=== PATIENT | female | born 1985 | race Caucasian/White ===

== ENCOUNTER 2018-09-20 10:51 | Emergency (ER) | payer SELFPAY ==
[~2018-09-20] VITALS: Ht 142.2 cm; Wt 70.8 kg
[2018-09-20 11:03] VITALS: BP 78/43
--- NOTE | 2018-09-20 11:09 | NUR ---
PT TO ER BED 7
--- NOTE | 2018-09-20 11:10 | NUR ---
C/O RECENT DIAGNOSIS OF BRONCHITIS. PT STILL EXPERIENCING SYMPTOMS AFTER TREATMENT WITH ANTIBIOTICS, FEVER, NAUSEA, VOMITING X 3 TODAY, DIARRHEA. TEMP 98 AT TIME OF TRIAGE. REPORTS SHE IS 10WKS, LMP 07/08/18, SKIN IS PINK/WARM/DRY; AAOX4 WITH EVEN AND STEADY GAIT; LUNGS CLEAR BL; HR EVEN AND REGULAR; PT DENIES ANY FEVER, CP, SOB, OR COUGH AT THIS TIME; PATIENT STATES PAIN OF 0/10 AT THIS TIME; VSS; PATIENT POSITIONED FOR COMFORT; HOB ELEVATED; BEDRAILS UP X2; BED DOWN. ER MD MADE AWARE OF PT STATUS.
--- NOTE | 2018-09-20 11:40 | NUR ---
Patient being evaluated by physician at bedside.
[2018-09-20 12:48] VITALS: BP 123/81
--- NOTE | 2018-09-20 12:53 | NUR ---
Patient discharged with v/s stable. Written and verbal after care instructions given and explained. Patient alert, oriented and verbalized understanding of instructions. Ambulatory with steady gait. All questions addressed prior to discharge. ID band removed. Patient advised to follow up with PMD. Rx of diclegis given. Patient educated on indication of medication including possible reaction and side effects. Opportunity to ask questions provided and answered.
== END 2018-09-20 12:53 | disposition home or self-care (01) ==
LOC: MED 10:51
DX: O98.511 Other viral diseases complicating pregnancy, first trimester (principal); B34.9 Viral infection, unspecified; O21.0 Mild hyperemesis gravidarum; Z3A.10 10 weeks gestation of pregnancy
CPT/HCPCS: 81002; 81025; 87804; 99283

== ENCOUNTER 2018-11-13 14:16 | Emergency (ER) | payer MEDICAID ==
[~2018-11-13] VITALS: Ht 142.2 cm; Wt 69.9 kg
--- NOTE | 2018-11-13 14:22 | NUR ---
PT AMBULATED TO ER BED 08
--- NOTE | 2018-11-13 14:22 | NUR ---
PATIENT PRESENTS TO ED WITH C/O BACK PAIN AND ABD PAIN SINCE LAST NIGHT. G3,P2, PT IS 18 WEEKS . PT DENIES VAG BLEEDING OR DISCHARGE AT THIS TIME. PT DENIES PAINFUL URINATION. PAIN 02/23 PT SKIN IS PINK/WARM/DRY; AAOX4 WITH EVEN AND STEADY GAIT; LUNGS CLEAR BL; HR EVEN AND REGULAR; PATIENT POSITIONED FOR COMFORT; HOB ELEVATED; BEDRAILS UP X2; BED DOWN. PENDING ER MD EVALUATION.
[2018-11-13 14:25] VITALS: BP 121/75
--- NOTE | 2018-11-13 15:05 | NUR ---
KEDAR KIRBY AT BEDSIDE TO EVALUATE PT
[2018-11-13 15:20] VITALS: BP 120/72
[2018-11-13 15:23] LABS: APPEARANCE,URINE SL CLOUDY (CLEAR); BILIRUBIN,URINE 2+ (NEGATIVE); BLOOD, URINE NEGATIVE (NEGATIVE); COLOR,URINE YELLOW (YELLOW); LEUKOCYTE ESTERASE ,URINE 1+ (NEGATIVE); NITRITE, URINE NEGATIVE (NEGATIVE); UGLUCOSE NEGATIVE (NEGATIVE)
[2018-11-13 15:30] LABS: RBC,URINE 0-5 /HPF (0-5)
== END 2018-11-13 15:20 | disposition home or self-care (01) ==
LOC: MED 14:16
DX: O23.42 Unspecified infection of urinary tract in pregnancy, second trimester (principal); Z3A.18 18 weeks gestation of pregnancy
CPT/HCPCS: 81001; 81025; 87086; 99283

== ENCOUNTER 2019-02-08 23:00 | Observation (INO) | payer MEDICAID ==
[~2019-02-08] VITALS: Ht 142.2 cm; Wt 73.5 kg
[2019-02-09] MEDS ORDERED: LACTATED RINGERS 1,000 ML IV SCH (00:30)
[2019-02-09] MEDS: TERBUTALINE 1 MG/ML VIAL SUBQ SCH ×2 (00:50→01:24)
[2019-02-09] MEDS ORDERED: TERBUTALINE 1 MG/ML VIAL SUBQ ONE (00:54)
[2019-02-09 00:56] LABS: APPEARANCE,URINE HAZY (CLEAR); BILIRUBIN,URINE NEGATIVE (NEGATIVE); BLOOD, URINE NEGATIVE (NEGATIVE); COLOR,URINE YELLOW (YELLOW); LEUKOCYTE ESTERASE ,URINE NEGATIVE (NEGATIVE); NITRITE, URINE NEGATIVE (NEGATIVE); UGLUCOSE NEGATIVE (NEGATIVE)
[2019-02-09 01:13] LABS: RBC,URINE 0-5 /HPF (0-5); WBC,URINE 0-5 /HPF (0-5)
[2019-02-09 03:21] VITALS: BP 118/71
== END 2019-02-09 14:45 | disposition home or self-care (01) ==
LOC: MLD 23:00
PROVIDERS: ADMIT Obstetrics & Gynecology; ATTEND Obstetrics & Gynecology
DX: O62.9 Abnormality of forces of labor, unspecified (principal); Z3A.29 29 weeks gestation of pregnancy
CPT/HCPCS: 36415; 76805; 81001; 82731; 85379; 96372; C1758; G0378; J3105; J7120; Q0092

== ENCOUNTER 2020-06-19 17:26 | Emergency (ER) | payer MEDICAID, SELFPAY ==
[~2020-06-19] VITALS: Ht 142.2 cm; Wt 76.7 kg
[2020-06-19 17:34] VITALS: BP 138/90
--- NOTE | 2020-06-19 17:34 | NUR ---
PT TRIAGED IN COVID TENT AND SENT TO WAIT IN TENT FOR ERMD EVALUATION.
--- NOTE | 2020-06-19 18:02 | NUR ---
DR. TSE EVALUATING PATIENT IN COVID TENT.
[2020-06-19 18:04] LABS: APPEARANCE,URINE CLOUDY (CLEAR); BILIRUBIN,URINE NEGATIVE (NEGATIVE); BLOOD, URINE NEGATIVE (NEGATIVE); COLOR,URINE YELLOW (YELLOW); LEUKOCYTE ESTERASE ,URINE NEGATIVE (NEGATIVE); NITRITE, URINE NEGATIVE (NEGATIVE); PH,URINE 5.5 (5.0-9.0); UGLUCOSE NEGATIVE (NEGATIVE)
[2020-06-19 18:20] VITALS: BP 138/90
--- NOTE | 2020-06-19 18:20 | NUR ---
Patient discharged with v/s stable. Written and verbal after care instructions given and explained. Patient alert, oriented and verbalized understanding of instructions. Ambulatory with steady gait. All questions addressed prior to discharge. ID band removed. Patient advised to follow up with PMD. Pt advised that covid results could take anywhere from 1-3 days and would be called with results. Rx of Zofran 8mg given. Patient educated on indication of medication including possible reaction and side effects. Opportunity to ask questions provided and answered.
--- NOTE | 2020-06-21 08:34 | NUR ---
Covid results received from lab. Results = POSITIVE. Hard copy requested from lab and placed in infection controls mailbox.
== END 2020-06-19 18:20 | disposition home or self-care (01) ==
LOC: MED 17:26
DX: U07.1 COVID-19 (principal); M54.5 Low back pain
CPT/HCPCS: 81003; 81025; 99283; U0003; 81002